=== PATIENT | male | born 1955 | race Caucasian/White ===

== ENCOUNTER 2019-01-31 13:39 | Emergency (ER) | payer BC ==
[~2019-01-31] VITALS: Ht 185.4 cm; Wt 122.7 kg
[2019-01-31 13:44] VITALS: BP 151/94
[2019-01-31 14:52] LABS: BASOPHILS # (AUTO) 0.1 X10'3 (0-0.2); EOSINOPHILS # (AUTO) 0.2 X10'3 (0-0.9); EOSINOPHILS % (AUTO) 3.2 % (0-6); LYMPHOCYTES # (AUTO) 2.4 X10'3 (1.1-4.8); LYMPHOCYTES % (AUTO) 39.2 % (21-51); MEAN CORPUSCULAR HEMOGLOBIN 26.4 PG (27.0-31.0); MEAN CORPUSCULAR HGB CONC 33.3 g/dL (33.0-36.5); MEAN CORPUSCULAR VOLUME 79.4 FL (78-98); MEAN PLATELET VOLUME 8.6 FL (7.4-10.4); MONOCYTES # (AUTO) 0.7 X10'3 (0-0.9); MONOCYTES % (AUTO) 11.7 % (2-12); NEUTROPHILS # (AUTO) 2.7 X10'3 (1.8-7.7); NEUTROPHILS % (AUTO) 44.9 % (42-75); PLATELET COUNT 167 X10'3 (140-440); RED BLOOD COUNT 5.66 X10'6 (4.70-6.10); RED CELL DISTRIBUTION WIDTH 15.3 % (11.5-14.5)
[2019-01-31 15:07] LABS: ALANINE AMINOTRANSFERASE 43 U/L (12-78); ALBUMIN 3.2 G/DL (3.4-5.0); ALBUMIN/GLOBULIN RATIO 0.8 (1.1-1.5); ALKALINE PHOSPHATASE 108 IU/L (46-116); ANION GAP 6 (8-16); ASPARTATE AMINO TRANSFERASE 25 U/L (10-37); BILIRUBIN,TOTAL 0.8 MG/DL (0.1-1.0); BLOOD UREA NITROGEN 18 MG/DL (7-18); BUN/CREATININE RATIO 14.1 (5.4-32.0); CALCIUM 8.2 MG/DL (8.5-10.1); CHLORIDE 110 MMOL/L (99-107); CREATININE 1.28 MG/DL (0.60-1.10); GLUCOSE 102 MG/DL (70-104); POTASSIUM 4.1 MMOL/L (3.5-5.1); SODIUM 141 MMOL/L (135-145); TOTAL CARBON DIOXIDE 24.8 MMOL/L (24-32); TOTAL PROTEIN 7.1 G/DL (6.4-8.2); eGFR 57 ML/MIN
[2019-01-31] MEDS ORDERED: LISI10TA4 PO (15:18)
== END 2019-01-31 15:47 | disposition home or self-care (01) ==
LOC: ER 13:40
DX: I10 Essential (primary) hypertension (principal); G47.30 Sleep apnea, unspecified; Z79.899 Other long term (current) drug therapy
CPT/HCPCS: 36415; 71045; 80053; 83735; 83880; 84484; 85025; 93005; 99284

== ENCOUNTER 2020-01-17 21:22 | Emergency (ER) | payer BC ==
[~2020-01-17] VITALS: Ht 185.4 cm; Wt 122.7 kg
[~2020-01-17 21:22] MED LIST: LISI10TA4 PO
[2020-01-17] MEDS ORDERED: epiNEPHrine 1 mg/ml inj ONE (21:24)
[2020-01-17] MEDS ORDERED: famotidine/PF 10 mg/ml inj IV ONE (21:35)
[2020-01-17] MEDS ORDERED: methylPREDNISolone sod succ 125mg/2ml vial IV ONE (21:35)
[2020-01-17] MEDS ORDERED: epiNEPHrine 1 mg/ml inj SQ STA (21:43)
[2020-01-17] MEDS ORDERED: EPIN0.1521 IM (21:56)
[2020-01-17] MEDS ORDERED: PRED20TA PO (21:57)
[2020-01-17 23:04] VITALS: BP 134/86
== END 2020-01-17 23:07 | disposition home or self-care (01) ==
LOC: ER 21:23
DX: T78.40XA Allergy, unspecified, initial encounter (principal); R06.02 Shortness of breath; G47.30 Sleep apnea, unspecified; Z79.899 Other long term (current) drug therapy; X58.XXXA Exposure to other specified factors, initial encounter
CPT/HCPCS: 93005; 96372; 96374; 96375; 99284; J0171; J2930; J3490